=== PATIENT | female | born 1975 | race Caucasian/White ===

== ENCOUNTER 2024-04-19 13:35 | Emergency (ER) | payer OTHER, SELFPAY ==
[2024-04-19 13:36] VITALS: BMI 23.8
[2024-04-19 14:37] VITALS: BP 141/55; PULSE 93; RESP 19; TEMP 36.8; O2SAT 98
--- NOTE | 2024-04-19 14:38 | XR_ITS ---
Examination: Toes, right foot first digit 3 views Technique: Toes AP oblique lateral 3 views Date and time of exam: April 19, 2024 1458 hours INDICATIONS: Injury to the foot 2 days ago, foot pain first digit pain FINDINGS: No acute fracture No dislocation No opaque foreign body IMPRESSION: No acute fracture
--- NOTE | 2024-04-19 14:45 | EDNOTE_ITS ---
Lower Extremity Injury RME/HPI General Chief Complaint: Ankle/Foot Injury Stated Complaint: Dropped a tray on her right great toe at work Time Seen by Provider: 04/19/24 14:00 Source: patient Arrival date/time: 04/19/24 13:35 This is a 48-year-old female presents to the emergency department due to a right great toe injury while at work. 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 She was sent here by her employer for x-ray rule out fracture and evaluation. Patient denies any other injuries Mode of arrival: ambulatory Related Data Previous Rx's ?Medication ?Instructions ?Recorded albuterol sulfate 90 mcg/actuation See Rx Instructions inhalation 06/13/18 aerosol inhaler .COMPLEX PRN wheezing / cough / shortness of breath #6.7 grams benzonatate 100 mg capsule See Rx Instructions .Route 06/13/18 (Tessalon Perles) .COMPLEX cough #30 caps cetirizine 5 mg-pseudoephedrine ER 1 tab PO Q12H #20 tabs 06/13/18 120 mg tablet,extended release,12hr (Zyrtec-D) inhalational spacing device #1 ea 06/13/18 (Aerochamber MV spacer) prednisone 20 mg tablet See Rx Instructions PO QAM #9 tabs 06/13/18 naproxen 500 mg tablet (Naprosyn) 500 mg PO BID PRN pain #30 tabs 12/17/19 Allergies Allergy/AdvReac Type Severity Reaction Status Date / Time clindamycin AdvReac Verified 04/19/24 13:39 Review of Systems Review of Systems Systems Reviewed: All systems reviewed, normal except as documented Narrative Review of Systems: Gen: No fever, no chills, no weight loss EYES: No discharge, no visual changes, no pain HEENT: No ear pain, no congestion, no sore throat PULM: No shortness of breath, no cough, no congestion CV: No chest pain, no dyspnea on exertion, no palpitations GI: No nausea, no vomiting, no diarrhea, no pain, no constipation : No frequency, no urgency,? no dysuria Musc/skel: No joint pain, no back pain, _toe pain Skin: No rash? ED Exam Narrative Physical exam: General: Sittiing in Exam table in no acute distress, answering questions appropriately HENT: normocephalic, atraumatic, EOMI, PERRLA, moist mucous membranes Chest: chest wall is nontender Cardiac: regular rate and rhythm, normal S1 and S2, no murmurs, rubs, or gallops, capillary refill ?2 seconds Pulmonary: clear to auscultation bilaterally, no wheezing, crackles, or rhonchi Abdominal: active bowel sounds, soft, nontender, nondistended Neuro: A&OX3, CN II-XII intact, sensation grossly intact bilaterally in UE and LE. Skin: no rashes, no ecchymosis Ext: Right great toe ecchymosis full range of motion nailbed intact Course Quality Measures none Orders Category Date Time Status XR toe RT min 2V Stat Exams 04/19/24 14:38 Completed Vital Signs Vital signs: Vital Signs Temperature 98.2 F 04/19/24 14:37 Pulse Rate 93 04/19/24 14:37 Respiratory Rate 19 04/19/24 14:37 Blood Pressure 141/55 H 04/19/24 14:37 Pulse Oximetry (%) 98 04/19/24 14:37 Oxygen Delivery Method Room Air 04/19/24 14:37 Extremity Injury, Lower Patient data External records reviewed:: [facility] previous records Clinical information provided by:: patient Social determinants that could affect healthcare access:: none Patient has the following chronic illnesses:: none How is presenting disease/condition affected by chronic disease/condition?: no chronic disease Evaluation data The following diagnostics were reviewed and interpreted by me:: radiology exam(s) Lab and/or radiology exams considered but not ordered:: none Interpretation Summary: Examination: Toes, right foot first digit 3 views Technique: Toes AP oblique lateral 3 views Date and time of exam: April 19, 2024 1458 hours INDICATIONS: Injury to the foot 2 days ago, foot pain first digit pain FINDINGS: No acute fracture No dislocation No opaque foreign body IMPRESSION: No acute fracture Medications / Prescriptions Medications or Prescriptions considered but not ordered:: no Medication administrations:: no Consultations Consultation(s) initiated? (list below): No Diagnosis Extremity Injury, Lower Differential Diagnosis: ankle sprain and strain, puncture wound of foot, fracture of toe and ankle fracture Most likely diagnosis given after review of the tests above:: , Toe contusion Admission Indicated Admission indicated?: not indicated Admission Request Was there a request for admission?: No Disposition Plan Disposition Plan: Discharge Discharge Attestation Discharge Attestation: The patient and all family members were given an opportunity to ask questions and understood the discharge instructions. Discharge instructions specifically effects, indications for sooner follow up or return to the emergency department, and the expected course of current diagnosis. Patient condition: Stable Discharge Plan Plan Patient Disposition: HOME (Self Care) Patient condition on transfer: Stable Prescriptions/Referrals Prescriptions/Med Rec: No Action cetirizine-pseudoephedrine [Zyrtec-D] 5-120 mg tablet extended release 12 hr 1 tab PO Q12H Qty: 20 0RF prednisone 20 mg tablet See Rx Instructions PO QAM Qty: 9 0RF Dose Instruction: PO QAM; Take 40mg (2 tabs) PO QAM x 3 days, then 20mg (1 tab) PO QAM x 3 days Rx Instructions: PO QAM; Take 40mg (2 tabs) PO QAM x 3 days, then 20mg (1 tab) PO QAM x 3 days benzonatate [Tessalon Perles] 100 mg capsule See Rx Instructions .Route .COMPLEX Qty: 30 0RF Rx Instructions: 1-2 cap(s) PO Q8 hours prn cough albuterol sulfate 90 mcg/actuation HFA aerosol inhaler See Rx Instructions INH .COMPLEX PRN (Reason: wheezing / cough / shortness of breath) Qty: 6.7 0RF Rx Instructions: INH PRN; 1-2 puffs Q4-6 hours prn. administer with spacer (DME) Aerochamber MV spacer See Dose Instructions .ROUTE .MEDSUPPLY Qty: 1 0RF Dose Instruction: As directed Rx Instructions: As directed naproxen [Naprosyn] 500 mg tablet 500 mg PO BID PRN (Reason: pain) Qty: 30 0RF Referrals: Mervin Reina PA-C [Primary Care Provider] - In 1 week Problem List Clinical Impression: Contusion of foot, right Patient/Caregiver Discharge Instructions Discharge Activity: activity as tolerated Education Materials: ED Foot Contusion Additional Instructions: Your x-ray does not demonstrate any fractures of your toe or foot. Most likely just bruising and contusion. Can apply ice every 15 minutes at a time 3 times a day for the next 3 days. Monitor on ibuprofen can help with pain and swelling. Follow-up with your primary doctor Workmen's [employer]. doctor. Return to the emergency department this any worsening symptoms change in condition. 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
== END 2024-04-19 16:24 | disposition home or self-care (01) ==
PROVIDERS: Emergency Provider Emergency Medicine; PCP Physician Assistant Medical
DX: S90.111A Contusion of right great toe without damage to nail, initial encounter (principal); W20.8XXA Other cause of strike by thrown, projected or falling object, initial encounter
CPT/HCPCS: 73660; 99283